=== PATIENT | female | born 1990 | race Caucasian/White ===

== ENCOUNTER → 2019-02-11 | Outpatient (CLI) | payer BC | END | disposition home or self-care (01) | LOC: CFH 11:03 | PROVIDERS: ATTEND Family Medicine | DX: R10.11 Right upper quadrant pain (principal) | CPT/HCPCS: 76700 ==

== ENCOUNTER → 2019-03-01 | Outpatient (CLI) | payer BC | END | disposition home or self-care (01) | LOC: EDSTATUS 02-22 16:00 → RAD 09:28 → EDSTATUS 06-01 08:30 | PROVIDERS: ATTEND Family Medicine | DX: R10.11 Right upper quadrant pain (principal); M79.18 Myalgia, other site | CPT/HCPCS: 74181 ==